=== PATIENT | female | born 1990 | race Hispanic/Latino ===

== ENCOUNTER 2016-11-28 02:05 | Day surgery (SDC) | payer OTHER ==
[~2016-11-28] VITALS: Ht 167.6 cm; Wt 54.5 kg
[~2016-11-28 02:05] MED LIST: ALPR1TAB2 PO; CETI-343 PO; CITA40TA PO; FLUT10SP NS; KLO5T PO; NORE-49 PO; RIZA10TA26 PO; TRAM50TA2 PO; [UNRECOGNIZED DRUG - CODE] PO
[2016-11-28 13:29] VITALS: BP 111/66; PULSE 80; RESP 14; O2SAT 98
[2016-11-28] MEDS ORDERED: 0.9% Sodium Chloride 500 ML ONE (13:42)
[2016-11-28] MEDS ORDERED: Atropine 1 mg/10 mL (Code) Syringe ONE (13:42)
--- NOTE | 2016-11-28 14:58 | OUT PROC ---
[address] [address] PROCEDURE NOTE PATIENT: KEVYN SOTO : 1990 MR#: [id number] ADMIT: 11/28/2016 JOB ID: [id number] DATE OF PROCEDURE: 11/28/2016 PROCEDURE: Tilt table test. INDICATION: Recurrent syncope. CONSENT: Informed consent was obtained from the patient after explaining benefits and the risks, which included, but not limited to, recurrence of syncope, significant bradycardia, tachycardia, blood pressure drop, hypotension, asystole, etc. The patient verbalizes understanding. TRUANT OFFICER: Fernanda Madera MD. DESCRIPTION OF PROCEDURE: The patient was brought to the [facility] in a stable condition. She underwent tilt table testing as per standard protocol. She was monitored constantly with blood pressure recording, EKG monitoring, pulse oximetry monitoring. Her baseline blood pressure 102/60 with heart rate 78, respiratory rate 18, oxygen saturation 100%. During tilt table testing her blood pressure remained stable. There was no hypotension or hypertension. It was no significant bradyarrhythmia or tachyarrhythmia. The patient felt some squeezing sensation in her chest without any significant ST-T changes. No recurrence of syncope. CONCLUSION: 1. Tilt table test is negative for vasovagal syncope. 2. No evidence of postural orthostatic tachycardia syndrome.
== END 2016-11-28 23:59 | disposition home or self-care (01) ==
LOC: SOUO 02:05
PROVIDERS: ATTEND Internal Medicine Cardiovascular Disease
DX: R55 Syncope and collapse (principal)